=== PATIENT | female | born 1985 | race Caucasian/White ===

== ENCOUNTER 2016-09-28 06:52 | Day surgery (SDC) | payer OTHER ==
[2016-09-28 07:18] VITALS: BMI 28.3
[2016-09-28] MEDS ORDERED: Propofol 10 mg/ml Inj (20 ML) ONE (08:08)
--- NOTE | 2016-09-28 08:12 | CP.SDSHP ---
Same Day Surgery H & P - History Proposed Procedure: EGD Pre-Op Diagnosis: SEE NOTES - Previous Medical/Surgical History Pain: 4.Moderate Pain - Allergies Allergies: Allergies No Known Allergies Allergy (Verified 09/28/16 07:18) - Physical Exam General Appearance: N Vital Signs: Vital Signs 09/28/16 09/28/16 07:22 07:37 Temperature 97.8 F Pulse Rate 74 74 Respiratory 19 Rate Blood Pressure 108/64 O2 Sat by Pulse 100 Oximetry Mental Status: Alert & Oriented x3 Neuro: WNL Heart: WNL GI: Other - {Optional Preform as Required} Breast: WNL Abdomen: Other Rectal: Other Integument: WNL : WNL Ortho: WNL ENT: WNL - Impression Pt. Evaluated Today:Candidate for Anesthesia & Procedure: Yes - Date & Time Time: 08:12 Short Stay Discharge - Short Stay Discharge Admitting Diagnosis/Reason for Visit: DYSPEPSIA Disposition: HOME/ ROUTINE
[2016-09-28 08:56] VITALS: O2SAT 97
[2016-09-28 09:19] VITALS: BP 100/64; PULSE 65; RESP 17; TEMP 97.5
--- NOTE | 2016-09-28 10:34 | ENDO ---
PROCEDURE DATE: 09/28/2016 PROCEDURE: Upper endoscopy with biopsy. PREOPERATIVE DIAGNOSES: 1. Abdominal pain. 2. Persistent dyspepsia. 3. Nausea. POSTOPERATIVE DIAGNOSES: 1. Gastritis, biopsies done. 2. Duodenitis. 3. Small duodenal bulb ulcer. ANESTHESIA: Given locally by the anesthesia staff. Please see anesthesia protocol and report. DESCRIPTION OF PROCEDURE: 1. Esophagus: The entire mucosa of esophagus appeared to be within normal limits. 2. Stomach: Scattered acutely hyper-erythematous mucosa of the antrum and prepyloric area. No ulce ration or mass lesion, no evidence of bleeding. Biopsies done to rule out possible Helicobacter pylo ri infection. The rest of the entire mucosa of the gastric wall appears to be within normal limits. 3. Pylorus: Patent and intact. 4. Duodenum: The entire mucosa of the duodenum through the second portion showed excessive hyper-er ythematous mucosa with small duodenal bulb ulcer measured about 0.3 cm to 0.4 cm at the anterior aspe ct. The patient tolerated the procedure well. COMPLICATIONS: None. POSTPROCEDURE STATUS: Stable. RECOMMENDATIONS: 1. Adjust oral intake, no citrus, no seeds. 2. Antireflux measures. 3. Carafate 1 gram 1 tablet 3 times a day. 4. Prilosec 40 mg 1 tablet q.a.m. 5. The patient may benefit from small dose of Reglan 5 mg one tablet 3 times a day a.c. only p.r.n. 6. Abdominal ultrasound with attention to the biliary tree and pancreas. That could be done as an o utpatient through the primary referring MD. 7. The patient was advised to follow up in my office as well as the referring MD's office after 4-6 weeks pending the outcome of the pathology report. It has to be mentioned that due to the computer shut down, I had to dictate this note through our ___ _ dictation system that also confirmed it with the head nurse who was in endoscopy room due to lack o f a computer service at that time in the hospital. Giselle Mata MD cc: 14 TT: 09/28/2016 09:19:55 mn
== END 2016-09-28 09:15 | disposition home or self-care (01) ==
LOC: C.ENDO 06:52
PROVIDERS: ATTEND Specialist
DX: K30 Functional dyspepsia (principal); K29.00 Acute gastritis without bleeding; K44.9 Diaphragmatic hernia without obstruction or gangrene; B96.81 Helicobacter pylori [H. pylori] as the cause of diseases classified elsewhere; K26.9 Duodenal ulcer, unspecified as acute or chronic, without hemorrhage or perforation; K29.80 Duodenitis without bleeding
CPT/HCPCS: 43239; 84703; 88305; J2704

== ENCOUNTER 2018-05-25 18:36 | Emergency (ER) | payer OTHER ==
[2018-05-25 18:36] VITALS: BMI 28.3
[2018-05-25 18:45] VITALS: BP 105/69; PULSE 84; RESP 20; TEMP 98; O2SAT 99
--- NOTE | 2018-05-25 19:31 | C.PDOC ---
History Of Present Illness 33 year old female presents to the emergency room complaining of right ear pain for x3 days. Associated symptoms includes congestion and dizziness. Patient notes her pain gets relieved when she moves her jaw. Patient denies fever, trauma and drainage. Time Seen by Provider: 05/25/18 19:04 Chief Complaint (Nursing): ENT Problem History Per: Patient History/Exam Limitations: None Onset/Duration Of Symptoms: Days Current Symptoms Are (Timing): Still Present Past Medical History Reviewed: Historical Data, Nursing Documentation, Vital Signs Vital Signs: Last Vital Signs Temp 98 F 05/25/18 18:38 Pulse 84 05/25/18 18:38 Resp 20 05/25/18 18:38 BP 105/69 05/25/18 18:38 Pulse Ox 99 05/25/18 18:38 Surgical History: Appendectomy, Tonsillectomy Family History: States: Unknown Family Hx - Social History Hx Alcohol Use: No Hx Substance Use: No - Immunization History Hx Tetanus Toxoid Vaccination: No Hx Influenza Vaccination: No Review Of Systems Constitutional: Positive for: Other (congestion; no trauma). Negative for: Fever ENT: Positive for: Ear Pain (right). Negative for: Other (ear drainage) Neurological: Positive for: Dizziness Physical Exam - Physical Exam Appears: Non-toxic, No Acute Distress Skin: Warm, Dry Head: Atraumatic, Normacephalic Eye(s): bilateral: Normal Inspection Ear(s): Left: Normal, Right: Other (external; slightly edematous; TM normal) Nose: Normal Oral Mucosa: Moist Throat: Normal Neck: Normal ROM, Supple Cardiovascular: Rhythm Regular, No Friction Rub, No Murmur Respiratory: Normal Breath Sounds Extremity: Normal ROM, No Swelling Neurological/Psych: Oriented x3, Normal Speech Gait: Steady ED Course And Treatment O2 Sat by Pulse Oximetry: 99 (RA) Pulse Ox Interpretation: Normal Medical Decision Making Medical Decision Making: Plans: -- antivert -- prednisone Reassess: On reassessment, patient is resting comfortably, and is in no acute distress. Patient was instructed to follow up with physician/clinic in 1-2 days for further evaluation. Disposition - Disposition Referrals: Sergio Dover MD [Staff Provider] - Disposition: HOME/ ROUTINE Disposition Time: 19:29 Condition: STABLE Additional Instructions: Follow up with the medical doctor within 1-2 days. Return if worsened. 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 - Scribe Statement The provider has reviewed the documentation as recorded by the Rj Peng Do All medical record entries made by the Scribe were at my direction and personally dictated by me. I have reviewed the chart and agree that the record accurately reflects my personal performance of the history, physical exam, medical decision making, and the department course for this patient. I have also personally directed, reviewed, and agree with the discharge instructions and disposition.
== END 2018-05-25 19:40 | disposition home or self-care (01) ==
LOC: C.ER 18:36
DX: H60.91 Unspecified otitis externa, right ear (principal); H92.01 Otalgia, right ear